=== PATIENT | female | born 1965 | race Caucasian/White ===

== ENCOUNTER 2016-08-22 04:01 | Inpatient (IN) | payer MEDICAID, OTHER ==
[~2016-08-22] VITALS: Ht 170.2 cm; Wt 72.0 kg
[~2016-08-22 04:01] MED LIST: IBUP-1542 PO; NAPR-260 PO
[2016-08-22] MEDS ORDERED: ACETAMINOPHEN 325 MG TAB PO STA (04:26)
[2016-08-22] MEDS ORDERED: SODIUM CHLORIDE 0.9% 1L BAG IV* STA (04:26)
[2016-08-22 05:12] LABS: ADD SCAN DIFF NO
[2016-08-22] MEDS ORDERED: ONDANSETRON 4 MG INJ IV STA (05:15)
[2016-08-22] MEDS ORDERED: morphine 4 MG/ML VIAL IV STA (05:15)
[2016-08-22 05:17] LABS: ABNORMAL IP MESSAGE 1; BASOPHILS % 0.3 % (0.0-2.0); HEMATOCRIT 38.2 % (37.0-47.0); LYMPHOCYTES # 0.8 10^3/ul (0.8-2.9); LYMPHOCYTES % 6.2 % (15.0-51.0); MEAN CORPUSCULAR HEMOGLOBIN 27.9 pg (29.0-33.0); MEAN PLATELET VOLUME 11.8 fl (7.4-10.4); MONOCYTE # 0.2 10^3/ul (0.3-0.9); MONOCYTES % 1.7 % (0.0-11.0); PLATELET COUNT 287 10^3/UL (140-415); RED BLOOD COUNT 4.66 10^6/ul (4.20-5.40); RED CELL DISTRIBUTION WIDTH 13.7 % (11.5-14.5); WHITE BLOOD COUNT 12.1 10^3/ul (4.8-10.8)
[2016-08-22 05:24] LABS: ALBUMIN 3.1 g/dl (3.3-4.9)
[2016-08-22 05:25] LABS: CHLORIDE 89 mmol/L (97-110); POTASSIUM 3.6 mmol/L (3.5-5.1); SODIUM 128 mmol/L (135-144)
[2016-08-22 05:27] LABS: ALBUMIN/GLOBULIN RATIO 0.83; ANION GAP 16 (8-16); ASPARTATE AMINO TRANSFERASE 50 IU/L (15-46); BILIRUBIN,INDIRECT 0.4 mg/dl (0-1.1); BILIRUBIN,TOTAL 0.4 mg/dl (0.2-1.3); BLOOD UREA NITROGEN 13 mg/dl (7-20); CARBON DIOXIDE 27 mmol/L (21-31); CREATININE 0.66 mg/dl (0.44-1.00); TOTAL PROTEIN 6.8 g/dl (6.1-8.1)
[2016-08-22 05:28] LABS: ALANINE AMINOTRANSFERASE 20 IU/L (13-69); ALKALINE PHOSPHATASE 87 IU/L (42-121); CALCIUM 9.6 mg/dl (8.4-10.2); GLUCOSE 143 mg/dl (70-220)
[2016-08-22 05:29] LABS: NEUTROPHILS % 91.1 % (39.0-77.0)
--- NOTE | 2016-08-22 05:34 | RADRPT ---
PROCEDURE: Chest. CLINICAL INDICATION: Chest pain. TECHNIQUE: Single frontal view of the chest was obtained. COMPARISON: None. FINDINGS: The cardiac silhouette is enlarged. The aortic arch is unremarkable. There is right basilar atelec tasis/consolidation and moderate pleural effusion. There is no pneumothorax. IMPRESSION: Right basilar atelectasis/consolidation and moderate pleural effusion. Mild cardiomegaly. .Crow Finn MD, MD Date Time Electronically viewed and signed by .Crow Finn MD, MD on 08/22/2016 05:34 .T/
[2016-08-22 05:39] LABS: INR 1.07; PROTIME 13.9 Sec (12.2-14.2); PT RATIO 1.1
[2016-08-22] MEDS ORDERED: CEFTRIAXONE 1 GM/50 ML (PMX) 50 ML IVPB STA (05:41)
[2016-08-22] MEDS ORDERED: AZITHROMYCIN 500MG/NS (PMX) 250 ML IV STA (05:41)
--- NOTE | 2016-08-22 05:45 | ERA ---
ER Documentation Chief Complaint Date/Time DATE: 08/22/16 TIME: 05:43 Chief Complaint coughx1 week, cp, fevers HPI This is a 50-year-old female cough for one week. Along with chest pain fevers for child cough is nonproductive. She started having fevers more severely tonight and came in to be evaluated. ROS All systems reviewed and are negative except as per history of present illness. Medications Home Meds Active Scripts Ibuprofen* (Motrin*) 600 Mg Tab, 600 MG PO Q8, #30 TAB Prov:JERONIMO STRONG MD 04/20/16 Naproxen* (Naprosyn*) 500 Mg Tablet, 500 MG PO BID Y for PAIN AND/OR INFLAMMATION, #30 TAB Prov:CHAYA GORDILLO PA-C 12/07/15 Allergies Allergies: Coded Allergies: No Known Drug Allergy (Verified Allergy, Mild, 12/07/15) PMhx/Soc History of Surgery: Yes (ANGIOPLASTY 2008, HYSTERCTOMY 1998, C SECTION 1989) Anesthesia Reaction: No Hx Neurological Disorder: No Hx Respiratory Disorders: No Hx Cardiac Disorders: Yes (HTN) Hx Psychiatric Problems: No Hx Miscellaneous Medical Probl: No Hx Alcohol Use: Yes Hx Substance Use: Yes Hx Tobacco Use: Yes Smoking Status: Light tobacco smoker Physical Exam Vitals Vital Signs Date Time Temp Pulse Resp B/P Pulse Ox O2 Delivery O2 Flow Rate FiO2 08/22/16 04:28 Nasal Cannula 3 08/22/16 04:07 101.2 118 24 142/107 91 Physical Exam Const: [] Head: Atraumatic Eyes: Normal Conjunctiva ENT: Normal External Ears, Nose and Mouth. Neck: Full range of motion..~ No meningismus. Resp: Clear to auscultation bilaterally Cardio: Regular rate and rhythm, no murmurs Abd: Soft, non tender, non distended. Normal bowel sounds Skin: No petechiae or rashes Back: No midline or flank tenderness Ext: No cyanosis, or edema Neur: Awake and alert Psych: Normal Mood and Affect Result Diagram: 08/22/1642408/22/16424 Results 24 hrs Laboratory Tests Test 08/22/16 04:25 Activated Partial Thromboplast Time Pending Alanine Aminotransferase (ALT/SGPT) 20IU/L Albumin 3.1g/dl Albumin/Globulin Ratio 0.83 Alkaline Phosphatase 87IU/L Anion Gap 16 Aspartate Amino Transf (AST/SGOT) 50IU/L Basophils # 0.010^3/ul Basophils % 0.3% Blood Urea Nitrogen 13mg/dl Calcium Level 9.6mg/dl Carbon Dioxide Level 27mmol/L Chloride Level 89mmol/L Creatinine 0.66mg/dl Direct Bilirubin 0.00mg/dl Eosinophils # 0.010^3/ul Eosinophils % 0.0% Globulin 3.70g/dl Glucose Level 143mg/dl Hematocrit 38.2% Hemoglobin 13.0g/dl INR International Normalized Ratio 1.07 Indirect Bilirubin 0.4mg/dl Lactic Acid Level 2.3mmol/L Lymphocytes # 0.810^3/ul Lymphocytes % 6.2% Mean Corpuscular Hemoglobin 27.9pg Mean Corpuscular Hemoglobin Concent 34.0g/dl Mean Corpuscular Volume 82.0fl Mean Platelet Volume 11.8fl Monocytes # 0.210^3/ul Monocytes % 1.7% Neutrophils # 11.010^3/ul Neutrophils % 91.1% Nucleated Red Blood Cells # 0.010^3/ul Nucleated Red Blood Cells % 0.0/100WBC Platelet Count 97218^3/UL Potassium Level 3.6mmol/L Prothrombin Time 13.9Sec Prothrombin Time Ratio 1.1 Red Blood Count 4.6610^6/ul Red Cell Distribution Width 13.7% Sodium Level 128mmol/L Total Bilirubin 0.4mg/dl Total Protein 6.8g/dl Troponin I Pending White Blood Count 12.110^3/ul Current Medications Medications (Trade) Dose Ordered Sig/Fam Route PRN Reason Start Time Stop Time Status Last Admin Dose Admin Sodium Chloride (NS) 2,150 ml BOLUS OVER 2 HOURS STAT IV* 08/22/16 04:26 08/22/16 04:28 DC 08/22/16 04:35 Acetaminophen (Tylenol Tab) 650 mg ONCE STAT PO 08/22/16 04:26 08/22/16 04:28 DC 08/22/16 04:35 Morphine Sulfate (morphine) 4 mg ONCE STAT IV 08/22/16 05:15 08/22/16 05:20 DC 08/22/16 05:26 Ondansetron HCl 4 mg 4 mg ONCE STAT IV 08/22/16 05:15 08/22/16 05:20 DC 08/22/16 05:26 Ceftriaxone Sodium 50 ml @ 100 mls/hr ONCE STAT IVPB 08/22/16 05:41 08/22/16 06:10 UNV Azithromycin (Zithromax 500mg/ NS (Pmx)) 250 ml @ 250 mls/hr ONCE STAT IV 08/22/16 05:41 08/22/16 06:40 UNV Procedures/MDM Patient's infectious symptoms have not stabilized and the patient is at risk of rapid decompensation. The patient will be admitted for careful hydration, antibiotic therapy, and infectious source control. Severe Sepsis Assessment: Infectious Source: Pneumonia End organ damage indicated by: [Lactate > 2.0 mmol/L Severe Sepsis Managment: Blood Cultures X 2 before broad spectrum antibiotics initiated within 3 hours of recognition. 30 ml/kg NS bolus Completed Initial Lactate: 2.3 Repeat Lactate pending Critical Care: Time: 45 minutes Treatments/Evaluations: Emergent fluid management, while maintaining close respiratory support. Immediate broad spectrum antibiotic therapy. Simultaneous assessment for possible sources in order to direct therapy. Consideration for invasive and chemical support to prevent respiratory or cardiac collapse. Septic Shock Assessment (1 hour post 30 ml/kg fluid bolus): Hypotension (SBP < 90 or 40 mmHg drop, MAP < 65): [No] Lactic acid > 4.0 [No] Perfusion Reassessment for Septic Shock: Temp 98.6, Pulse 99, RR 18, BP 117/76 Heart Exam: [Tachycardic] Lung Exam: [No Crackles] Capillary Refill: [Delayed] Peripheral Pulses: [Radially present] Skin: [Mottled, pale] Accepting Care Team: Current data and ongoing care discussed. Time: 545 Primary Provider: [employer] Consulting: [[employer]] Outstanding Data: none Departure Diagnosis: Primary Impression: Sepsis MEMO CHERRY Aug 22, 2016 05:45
[2016-08-22 05:51] LABS: TROPONIN-I < 0.012 ng/ml (0.00-0.12)
[2016-08-22 06:08] LABS: PARTIAL THROMBOPLASTIN TIME 37.6 Sec (25.0-35.0)
[2016-08-22 06:30] VITALS: TEMP 101.2
[2016-08-22 06:57] LABS: ADD UMIC YES; URINE BILIRUBIN (Dip) NEGATIVE (NEGATIVE); URINE BLOOD (Dip) TRACE (NEGATIVE); URINE COLOR YELLOW (YELLOW); URINE GLUCOSE (Dip) NEGATIVE (NEGATIVE); URINE KETONES (Dip) TRACE (NEGATIVE); URINE LEUKOCYTE ESTERASE (Dip) NEGATIVE (NEGATIVE); URINE NITRITE (Dip) POSITIVE (NEGATIVE); URINE TOTAL PROTEIN (Dip) 2+ (NEGATIVE); URINE UROBILINOGEN (Dip) 0.2 E.U./dL (0.1-1.0)
[2016-08-22 07:18] LABS: URINE RBCS 0-2 /HPF (0)
[2016-08-22 07:19] LABS: BACTERIA,URINE MANY; SQUAMOUS EPITHELIAL CELL,UR FEW
[2016-08-22 07:45] VITALS: BP 135/67; RESP 20
[2016-08-22] MEDS: morphine 2 MG INJ IV PRN (08:56)
[2016-08-22] MEDS ORDERED: ALBUTEROL/IPRATROPIUM (NEB) 3 ML AMP HHN PRN (09:30)
[2016-08-22] MEDS ORDERED: ONDANSETRON 4 MG INJ IV PRN (09:30)
[2016-08-22] MEDS ORDERED: AZITHROMYCIN 500MG/NS (PMX) 250 ML IVPB ONE (10:30)
[2016-08-22] MEDS: ALBUTEROL/IPRATROPIUM (NEB) 3 ML AMP HHN SCH ×2 (10:38→19:27)
[2016-08-22] MEDS: PANTOPRAZOLE (EC) 40 MG TAB PO SCH (11:04)
[2016-08-22] MEDS: DOCUSATE SODIUM 250 MG CAP PO SCH (11:04)
[2016-08-22] MEDS: CEFTRIAXONE 1 GM/50 ML (PMX) 50 ML IVPB SCH (11:05)
[2016-08-22] MEDS: SOD CHLORIDE 0.9% 1,000 ML IV SCH ×3 (11:06→21:51)
[2016-08-22 11:49] VITALS: Ht 170.2 cm; Wt 72.0 kg
--- NOTE | 2016-08-22 13:59 | RADRPT ---
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 Physician: SHANE LOUISE Quality: Adequate Procedures: Transthoracic echocardiogram with complete 2D, M-Mode, and doppler examination. Indications: Shortness of breath. 2D/M Mode Doppler Measurement Value Normal Ranges Measurement Value Normal Ranges LVIDd 2D 4.1 3.5 - 5.6 cm AV Peak Neo 1.4 m/sec LVIDs 2D 2.7 2.1 - 4.1 cm AV Peak PG 8.3 mmHg LVPWd 2D 1.4 0.6 - 1.1 cm LVOT Peak Neo 1.1 m/sec IVSd 2D 1.2 0.6 - 1.1 cm LVOT Peak PG 4.6 mmHg AoR Diam 2D 2.5 2.0 - 3.7 cm MV E Peak Noe 0.8 m/sec EDV 2D 74.3 cm3 MV A Peak Neo 1.0 m/sec ESV 2D 19.4 cm3 MV E/A 0.8 MV Decel Time 111 msec MV Decel [place] 7 MV E/A 0.8 Findings Left Ventricle: Normal left ventricular systolic function. Normal left ventricular cavity size. Mild concentric left ventricular hypertrophy. Ejection fraction is visually estimated at 60 %. Tissue Doppler/Mitral Doppler indices are consistent with impaired relaxation (Stage I diastolic dysfunction). Right Ventricle: Normal right ventricular size. Normal right ventricular systolic function. Left Atrium: The left atrium is normal in size. Right Atrium: The right atrium is normal in size. Mitral Valve: Mild mitral leaflet calcification. Mild mitral annular calcification. Trace mitral regurgitation. Aortic Valve: Trileaflet aortic valve. Trace aortic valve regurgitation. Tricuspid Valve: Tricuspid valve not well visualized. There is trace tricuspid regurgitation. Pulmonic Valve: Pulmonic valve not well visualized. There is trace pulmonic regurgitation. Pericardium: Normal pericardium with no significant pericardial effusion. Aorta: Normal aortic root. IVC: Normal size and normal respiratory collapse consistent with normal right atrial pressure. Conclusions 1.Normal left ventricular systolic function. Normal left ventricular cavity size. Mild concentric left ventricular hypertrophy. Ejection fraction is visually estimated at 60 %. Tissue Doppler/Mitral Doppler indices are consistent with impaired relaxation (Stage I diastolic dysfunction). 2.Trileaflet aortic valve. Trace aortic valve regurgitation. 3.Tricuspid valve not well visualized. There is trace tricuspid regurgitation. 4.Mild mitral leaflet calcification. Mild mitral annular calcification. Trace mitral regurgitation. Electronically Signed By: Nicolás Abbasi 22-Aug-2016 13:58:29 -0800 Patient Name: YARA BARNETT Study Date: 22-Aug-2016 [id number]
--- NOTE | 2016-08-22 16:10 | HP ---
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 HISTORY OF PRESENT ILLNESS: This is a 50-year-old homeless female with past medical history of sai nydia dependency, alcoholism, who presents to [facility] secondary to having genera lized weakness, cough, congestion, which has been off and on for the past 3 weeks, with worsening of her condition for the past 2 days. Upon arrival to emergency room, WBC was found to be 12.1. Ches t x-ray was obtained, which showed right basilar atelectasis consolidation, moderate pleural effusio n, marked cardiomegaly. Patient was treated with azithromycin and Rocephin in the course of the galina rgency room and has been admitted to med/surg for further evaluation and treatment. The patient sta anderson that she has been having chest discomfort, which was explained as pleuritic pain secondary to ex cessive cough. She denies having any chest pain, abdominal pain, nausea, vomiting, diarrhea. No he adache, dizziness, lightheadedness. No change in visual acuity, diplopia, photophobia. No sick con tact, no recent travel history. No hematemesis, hematochezia, change in the color of stool or cough ing up blood. PAST MEDICAL AND SURGICAL HISTORY: As above per HPI. MEDICATIONS: No active medication. ALLERGIES: NO KNOWN DRUG ALLERGIES. FAMILY HISTORY: Noncontributory. SOCIAL HISTORY: Positive for alcohol. She drinks 6 pack a day and smokes half a pack of cigarettes per day. She denies using any illicit drugs. REVIEW OF SYSTEMS: As above per HPI. Otherwise, 12 review of systems was found to be negative. PHYSICAL EXAMINATION: VITAL SIGNS: Temperature 101.2, pulse 118, respiration 20, blood pressure 135/67, oxygen 93% on 2 l iters via nasal cannula. GENERAL APPEARANCE: Patient is lying in bed comfortably without any distress. She is awake, alert, oriented. Is able to answer my questions properly. Not using any accessory muscles for breathing. EYES AND ENT: Conjunctivae and lids are normal. Pupils are normal. Extraocular normal. Hearing g rossly normal. Lips, teeth, and gums are normal. Oral mucosa mildly dry. NECK: Supple. Trachea is midline. No lymphadenopathy. RESPIRATORY: Effort is normal. Decreased breath sounds in the right lower lung field. No crackles , no rales, no wheezing. CARDIOVASCULAR: Normal S1, S2. Regular rhythm and rate. No murmur, no bruits, no edema. Peripher al pulses, radial pulses palpable. Cap refill is normal. CHEST: Normal expansion of thorax during inspiration. GASTROINTESTINAL: Abdomen is soft, nontender, not distended. Bowel sounds present. No guarding, n o rebound. GENITOURINARY: Deferred. MUSCULOSKELETAL: Upper and lower extremities within normal limits. Full range of motion. Strength 5/5 in both upper and lower extremities. NEUROLOGIC: Cranial nerves II through XII are grossly intact. PSYCHIATRIC: Normal judgment and insight. Alert and oriented x3. Mood and affect is normal. LABORATORY WORK AND IMAGING: WBC 12.1, hemoglobin 13, hematocrit 38.2, platelets 287. Sodium 138, potassium 3.6, chloride 89, bicarbonate 27, BUN 16, creatinine 0.66, glucose 143, lactic acid 2.31, 1.4. LFTs: AST 50. Otherwise, everything else is negative. Albumin 3.1. ASSESSMENT AND PLAN: 1. Right-sided pleural effusion infection/pneumonia. Patient has been started on Rocephin and azit hromycin. Also on breathing treatment. 2. History of alcoholism. The patient has been placed on thiamine, folic acid, multivitamin. Also, will place the patient on p.r.n. Ativan. 3. Nicotine dependency. Smoking cessation has been advised. 4. For deep venous thrombosis prophylaxis, on Lovenox. 5. Will continue to monitor patient closely. Further recommendations, management, and treatment as per clinical course. Total amount of time spent for evaluation of patient and admission workup: 40 minutes. Dictated By: HEVER INFANTE/NTS Conf#: [id number] DID#: [id number]
[2016-08-22] MEDS: HYDROCODONE/APAP (5/325) TAB PO PRN (16:11)
[2016-08-22] MEDS: LORAZEPAM 0.5 MG TAB PO PRN (21:51)
[2016-08-22 23:00] VITALS: BP 135/68; PULSE 61; RESP 21
[2016-08-23] MEDS: PANTOPRAZOLE (EC) 40 MG TAB PO SCH (05:47)
[2016-08-23 05:56] LABS: ADD SCAN DIFF NO
[2016-08-23] MEDS: HYDROCODONE/APAP (5/325) TAB PO PRN ×2 (05:56→13:36)
[2016-08-23] MEDS: SOD CHLORIDE 0.9% 1,000 ML IV SCH ×2 (05:58→17:31)
[2016-08-23 06:09] LABS: ABNORMAL IP MESSAGE 1; BASOPHILS % 0.2 % (0.0-2.0); EOSINOPHILS % 0.1 % (0.0-7.0); HEMATOCRIT 30.2 % (37.0-47.0); HEMOGLOBIN 10.3 g/dl (12.0-16.0); LYMPHOCYTES # 1.2 10^3/ul (0.8-2.9); LYMPHOCYTES % 8.8 % (15.0-51.0); MEAN CORPUSCULAR HEMOGLOBIN 28.3 pg (29.0-33.0); MEAN CORPUSCULAR HGB CONC 34.1 g/dl (32.0-37.0); MEAN PLATELET VOLUME 11.9 fl (7.4-10.4); MONOCYTE # 0.3 10^3/ul (0.3-0.9); NEUTROPHIL # 11.7 10^3/ul (1.6-7.5); NEUTROPHILS % 87.5 % (39.0-77.0); PLATELET COUNT 319 10^3/UL (140-415); RED BLOOD COUNT 3.64 10^6/ul (4.20-5.40); RED CELL DISTRIBUTION WIDTH 13.9 % (11.5-14.5); WHITE BLOOD COUNT 13.4 10^3/ul (4.8-10.8)
[2016-08-23 06:34] LABS: CHLORIDE 96 mmol/L (97-110); POTASSIUM 3.7 mmol/L (3.5-5.1); SODIUM 129 mmol/L (135-144)
[2016-08-23 06:37] LABS: ANION GAP 13 (8-16); BLOOD UREA NITROGEN 12 mg/dl (7-20); CARBON DIOXIDE 24 mmol/L (21-31); CHOLESTEROL < 50 mg/dl (100-200); CREATININE 0.55 mg/dl (0.44-1.00); GLUCOSE 90 mg/dl (70-220); TRIGLYCERIDES 45 mg/dl (0-149)
[2016-08-23 06:38] LABS: CALCIUM 8.1 mg/dl (8.4-10.2); HDL CHOLESTEROL 15 mg/dl (37-92); MAGNESIUM 1.7 mg/dl (1.7-2.5)
[2016-08-23 07:46] VITALS: BP 135/81; RESP 19
[2016-08-23] MEDS: ALBUTEROL/IPRATROPIUM (NEB) 3 ML AMP HHN SCH ×2 (08:28→13:43)
[2016-08-23] MEDS: THIAMINE 100 MG TAB PO SCH (09:34)
[2016-08-23] MEDS: MULTIVITAMINS THERAPEUTIC TAB PO SCH (09:34)
[2016-08-23] MEDS: FOLIC ACID 1 MG TAB PO SCH (09:34)
[2016-08-23] MEDS: DOCUSATE SODIUM 250 MG CAP PO SCH (09:34)
[2016-08-23] MEDS: CEFTRIAXONE 1 GM/50 ML (PMX) 50 ML IVPB SCH (09:35)
[2016-08-23] MEDS: ENOXAPARIN 40 MG/0.4 ML SYG SC SCH (09:41)
--- NOTE | 2016-08-23 15:44 | PN ---
Date/Time of Note Date/Time of Note DATE: 08/23/16 TIME: 15:30 Assessment/Plan VTE Prophylaxis VTE Prophylaxis Intervention: SCD's Lines/Catheters IV [facility]ter Type (from [facility]): Peripheral IV Urinary Cath still in place: No Assessment/Plan Chief Complaint/Hosp Course ASSESSMENT AND PLAN: 1. Right-sided pleural effusion infection/pneumonia. Transition Rocephin to Zosyn. Continue breathing treatment. 2. History of alcoholism. The patient has been placed on thiamine, folic acid , multivitamin. Also, will place the patient on p.r.n. Ativan. 3. Bacteremia with positive Streptococcus pneumonia and blood culture positive for Gram positive cocci in pairs and chains, continue Zosyn 4. Nicotine dependency. Smoking cessation has been advised. 5. For deep venous thrombosis prophylaxis, on Lovenox. 6. Will continue to monitor patient closely. Further recommendations, management, and treatment as per clinical course Problems: Subjective 24 Hr Interval Summary Free Text/Dictation Patient continues to complain of having cough and congestion Denies any chest pain or shortness of breath Tolerating oral intake Exam/Review of Systems Vital Signs Vitals Vital Signs Date Time Temp Pulse Resp B/P Pulse Ox O2 Delivery O2 Flow Rate FiO2 08/23/16 13:46 92 20 96 21 08/23/16 08:00 Nasal Cannula 2.0 08/23/16 07:46 98.2 135/81 Intake and Output 08/22/16 08/22/16 08/23/16 15:00 23:00 07:00 Intake Total 900 ml 1000 ml 1480 ml Balance 900 ml 1000 ml 1480 ml Exam General: The patient is well-developed, Not in acute distress. HEENT: Atraumatic, normocephalic. The pupils are equal and round . Neck: Supple with full range of motion. Chest: Normal expansion of the thorax during inspiration Lungs: Decreased breath sound right lower lung field, no crackles or rales Heart: Normal S1-S2, Regular rhythm and rate. Abdomen: Soft , nontender, nondistended , bowel sounds are present. Extremities: Normal to inspection, no edema no cyanosis Neurologic: Normal mental status,The patient is awake, alert and oriented . Results Result Diagram: 08/23/16 0522 08/23/16 0522 Results 24 hrs Laboratory Tests Test 08/23/16 05:22 Anion Gap 13 Basophils # 0.0 Basophils % 0.2 Blood Urea Nitrogen 12 Calcium Level 8.1 L Carbon Dioxide Level 24 Chloride Level 96 L Cholesterol Level < 50 L Cholesterol/HDL Ratio Creatinine 0.55 Eosinophils # 0.0 Eosinophils % 0.1 Glucose Level 90 # HDL Cholesterol 15 L Hematocrit 30.2 #L Hemoglobin 10.3 #L LDL Cholesterol, Calculated Lymphocytes # 1.2 Lymphocytes % 8.8 L Magnesium Level 1.7 Mean Corpuscular Hemoglobin 28.3 L Mean Corpuscular Hemoglobin Concent 34.1 Mean Corpuscular Volume 83.0 Mean Platelet Volume 11.9 H Monocytes # 0.3 Monocytes % 2.0 Neutrophils # 11.7 H Neutrophils % 87.5 H Nucleated Red Blood Cells # 0.0 Nucleated Red Blood Cells % 0.0 Platelet Count 319 Potassium Level 3.7 Red Blood Count 3.64 #L Red Cell Distribution Width 13.9 Sodium Level 129 L Triglycerides Level 45 White Blood Count 13.4 H Medications Medications Current Medications Morphine Sulfate 2 mg 2 mg Q4H PRN IV PAIN LEVEL 7-10 Last administered on 08:56; Admin Dose 2 MG; Start 08/22/16 at 09:00 Ceftriaxone Sodium (Rocephin) 50 ml @ 100 mls/hr Q24H IVPB Last administered on 08/23/16 09:35; Admin Dose 100 MLS/HR; Start 08/22/16 at 09:30 Ondansetron HCl (Zofran Inj) 4 mg Q6H PRN IV NAUSEA AND/OR VOMITING; Start 08/22 at 09:30 Acetaminophen/ Hydrocodone Bitart 1 tab 1 tab Q6H PRN PO pain Last administered on 08/23/16 13:36; Admin Dose 1 TAB; Start 08/22/16 at 09:30 Sodium Chloride (NS) 1,000 ml @ 125 mls/hr Q8H IV Last administered on 05:58; Admin Dose 125 MLS/HR; Start 08/22/16 at 09:30 Pantoprazole (Protonix Tab) 40 mg DAILY@06 PO Last administered on 08/23/16 05: 47; Admin Dose 40 MG; Start 08/22/16 at 09:30 Docusate Sodium (Colace) 250 mg DAILY PO Last administered on 08/23/16 09:34; Admin Dose 250 MG; Start 08/22/16 at 09:30 Enoxaparin Sodium (Lovenox) 40 mg DAILY SC Last administered on 08/23/16 09:41 ; Admin Dose 40 MG; Start 08/23/16 at 09:00 Folic Acid (Folic Acid) 1 mg DAILY PO Last administered on 08/23/16 09:34; Admin Dose 1 MG; Start 08/23/16 at 09:00 Thiamine HCl (Vitamin B1) 100 mg DAILY PO Last administered on 08/23/16 09:34; Admin Dose 100 MG; Start 08/23/16 at 09:00 Multivitamins Therapeutic (Theragran) 1 tab DAILY PO Last administered on 09:34; Admin Dose 1 TAB; Start 08/23/16 at 09:00 Lorazepam (Ativan) 0.5 mg Q6H PRN PO ANXIETY Last administered on 08/22/16 21: 51; Admin Dose 0.5 MG; Start 08/22/16 at 15:30 HEVER GARCIA MD Aug 23, 2016 15:40
[2016-08-23] MEDS: LORAZEPAM 0.5 MG TAB PO PRN (17:42)
[2016-08-23 20:35] VITALS: BP 142/75; RESP 20
[2016-08-23] MEDS ORDERED: LORAZEPAM 1 MG TAB PO PRN (21:00)
[2016-08-23] MEDS ORDERED: LORAZEPAM 1 MG TAB PO ONE (21:00)
[2016-08-23] MEDS: PIPER-TAZO 3.375 GM IV (PMX) 100 ML IVPB SCH (21:08)
[2016-08-24] MEDS: SOD CHLORIDE 0.9% 1,000 ML IV SCH ×2 (01:30→09:07)
[2016-08-24] MEDS: PANTOPRAZOLE (EC) 40 MG TAB PO SCH (05:15)
[2016-08-24] MEDS: PIPER-TAZO 3.375 GM IV (PMX) 100 ML IVPB SCH (05:15)
[2016-08-24] MEDS: HYDROCODONE/APAP (5/325) TAB PO PRN (05:20)
[2016-08-24 05:58] LABS: ADD SCAN DIFF NO
[2016-08-24 06:05] LABS: BASOPHILS % 0.4 % (0.0-2.0); EOSINOPHILS # 0.1 10^3/ul (0.0-0.5); EOSINOPHILS % 0.5 % (0.0-7.0); HEMATOCRIT 34.1 % (37.0-47.0); HEMOGLOBIN 11.6 g/dl (12.0-16.0); LYMPHOCYTES # 1.3 10^3/ul (0.8-2.9); LYMPHOCYTES % 11.8 % (15.0-51.0); MEAN CORPUSCULAR HEMOGLOBIN 28.4 pg (29.0-33.0); MEAN CORPUSCULAR VOLUME 83.4 fl (82.0-101.0); MEAN PLATELET VOLUME 11.9 fl (7.4-10.4); MONOCYTE # 0.2 10^3/ul (0.3-0.9); MONOCYTES % 1.9 % (0.0-11.0); NEUTROPHIL # 9.2 10^3/ul (1.6-7.5); NEUTROPHILS % 83.9 % (39.0-77.0); PLATELET COUNT 457 10^3/UL (140-415); RED BLOOD COUNT 4.09 10^6/ul (4.20-5.40); RED CELL DISTRIBUTION WIDTH 14.3 % (11.5-14.5)
[2016-08-24 06:18] LABS: POTASSIUM 3.8 mmol/L (3.5-5.1)
[2016-08-24 06:20] LABS: CREATININE 0.52 mg/dl (0.44-1.00)
[2016-08-24 06:21] LABS: CALCIUM 7.9 mg/dl (8.4-10.2)
[2016-08-24 07:49] VITALS: BP 157/92; RESP 18
[2016-08-24] MEDS: ENOXAPARIN 40 MG/0.4 ML SYG SC SCH (09:00)
[2016-08-24] MEDS: MULTIVITAMINS THERAPEUTIC TAB PO SCH (09:05)
[2016-08-24] MEDS: DOCUSATE SODIUM 250 MG CAP PO SCH (09:05)
[2016-08-24] MEDS: THIAMINE 100 MG TAB PO SCH (09:05)
[2016-08-24] MEDS: FOLIC ACID 1 MG TAB PO SCH (09:05)
[2016-08-24] MEDS: morphine 2 MG INJ IV PRN (09:07)
[2016-08-24] MEDS ORDERED: GUAIFENESIN/CODEINE 5ML CUP PO PRN (10:30)
--- NOTE | 2016-08-24 11:16 | PN ---
Date/Time of Note Date/Time of Note DATE: 08/24/16 TIME: 11:14 Assessment/Plan VTE Prophylaxis VTE Prophylaxis Intervention: SCD's Lines/Catheters [facility] Peripheral IV Urinary Cath still in place: No Assessment/Plan Chief Complaint/Hosp Course ASSESSMENT AND PLAN: 1. Right-sided pleural effusion infection/pneumonia. Continue Zosyn. Continue breathing treatment. [employer] has been consulted for further recommendations 2. History of alcoholism. The patient has been placed on thiamine, folic acid , multivitamin. Also, will place the patient on p.r.n. Ativan. 3. Bacteremia with positive Streptococcus pneumonia and blood culture positive for Gram positive cocci in pairs and chains, continue Zosyn 4. Nicotine dependency. Smoking cessation has been advised. 5. For deep venous thrombosis prophylaxis, on Lovenox. 6. Will continue to monitor patient closely. Further recommendations, management, and treatment as per clinical course Problems: Subjective 24 Hr Interval Summary Free Text/Dictation Patient continues to complain of having cough and congestion The cough is complaining with shortness of breath Denies any abdominal pain or chest pain Exam/Review of Systems Vital Signs Vitals Vital Signs Date Time Temp Pulse Resp B/P Pulse Ox O2 Delivery O2 Flow Rate FiO2 08/24/16 07:49 97.7 95 18 157/92 93 08/23/16 13:46 21 08/23/16 08:00 Nasal Cannula 2.0 Intake and Output 08/23/16 08/23/16 08/24/16 15:00 23:00 07:00 Intake Total 2370 ml 1240 ml Balance 2370 ml 1240 ml Exam General: The patient is well-developed, Not in acute distress. HEENT: Atraumatic, normocephalic. The pupils are equal and round . Neck: Supple with full range of motion. Chest: Normal expansion of the thorax during inspiration Lungs: Decreased breath sounds right lower lung field Heart: Normal S1-S2, Regular rhythm and rate. Abdomen: Soft , nontender, nondistended , bowel sounds are present. Extremities: Normal to inspection, no edema no cyanosis Neurologic: Normal mental status,The patient is awake, alert and oriented . Results Result Diagram: 08/24/16 0430 08/24/16 0430 Results 24 hrs Laboratory Tests Test 08/24/16 04:30 Anion Gap 14 Basophils # 0.0 Basophils % 0.4 Blood Urea Nitrogen 13 Calcium Level 7.9 L Carbon Dioxide Level 27 Chloride Level 95 L Creatinine 0.52 Eosinophils # 0.1 Eosinophils % 0.5 Glucose Level 73 Hematocrit 34.1 L Hemoglobin 11.6 L Lymphocytes # 1.3 Lymphocytes % 11.8 L Mean Corpuscular Hemoglobin 28.4 L Mean Corpuscular Hemoglobin Concent 34.0 Mean Corpuscular Volume 83.4 Mean Platelet Volume 11.9 H Monocytes # 0.2 L Monocytes % 1.9 Neutrophils # 9.2 H Neutrophils % 83.9 H Nucleated Red Blood Cells # 0.0 Nucleated Red Blood Cells % 0.0 Platelet Count 457 #H Potassium Level 3.8 Red Blood Count 4.09 L Red Cell Distribution Width 14.3 Sodium Level 132 L White Blood Count 11.0 H Medications Medications Current Medications Morphine Sulfate (morphine) 2 mg Q4H PRN IV PAIN LEVEL 7-10 Last administered on 08/24/16 09:07; Admin Dose 2 MG; Start 08/22/16 at 09:00 Ondansetron HCl (Zofran Inj) 4 mg Q6H PRN IV NAUSEA AND/OR VOMITING; Start 08/22 at 09:30 Acetaminophen/ Hydrocodone Bitart 1 tab 1 tab Q6H PRN PO pain Last administered on 08/24/16 05:20; Admin Dose 1 TAB; Start 08/22/16 at 09:30 Sodium Chloride (NS) 1,000 ml @ 125 mls/hr Q8H IV Last administered on 17:31; Admin Dose 125 MLS/HR; Start 08/22/16 at 09:30 Pantoprazole (Protonix Tab) 40 mg DAILY@06 PO Last administered on 08/24/16 05: 15; Admin Dose 40 MG; Start 08/22/16 at 09:30 Docusate Sodium (Colace) 250 mg DAILY PO Last administered on 08/24/16 09:05; Admin Dose 250 MG; Start 08/22/16 at 09:30 Enoxaparin Sodium (Lovenox) 40 mg DAILY SC Last administered on 08/23/16 09:41 ; Admin Dose 40 MG; Start 08/23/16 at 09:00 Folic Acid (Folic Acid) 1 mg DAILY PO Last administered on 3/8/17at 09:05; Admin Dose 1 MG; Start 08/23/16 at 09:00 Thiamine HCl (Vitamin B1) 100 mg DAILY PO Last administered on 08/24/16 09:05; Admin Dose 100 MG; Start 08/23/16 at 09:00 Multivitamins Therapeutic 1 tab 1 tab DAILY PO Last administered on 08/24/16 09 :05; Admin Dose 1 TAB; Start 08/23/16 at 09:00 Piperacillin Sod/ Tazobactam Sod (Zosyn 3.375gm/ 100 ml (Pmx)) 100 ml @ 200 mls /hr Q8 IVPB Last administered on 08/24/16 05:15; Admin Dose 200 MLS/HR; Start 08/23/16 at 22:00 Lorazepam (Ativan) 1 mg Q4H PRN PO ANXIETY; Start 08/23/16 at 21:00 Guaifenesin/ Codeine Phosphate (Robitussin Ac Liquid Cup) 5 ml Q6H PRN PO COUGH ; Start 08/24/16 at 10:30 HEVER GARCIA MD Aug 24, 2016 11:16
--- NOTE | 2016-08-24 15:16 | CONS ---
DATE OF ADMISSION: 08/22/2016 DATE OF CONSULTATION: 08/24/2016 HISTORY OF PRESENT ILLNESS: This is a 50-year-old homeless lady with history of alcohol and tobacco use who came in with increasing shortness of breath, orthopnea and PND. She was found to have a ri ght effusion with dense infiltrate. She has had a nonproductive cough, subjective fever and right-s ided pleuritic chest pain and states she has no history of hemoptysis or hematemesis. Denies any we ight loss. PAST MEDICAL HISTORY: As above. MEDICATIONS: Per chart. ALLERGIES: NONE KNOWN. SOCIAL HISTORY: She smokes half a pack per day, has done so for 20+ years. Drinks a 6 pack per day or so. Denies any history of drug use. FAMILY HISTORY: Noncontributory. SYSTEMS REVIEW: A 12-point review of systems was negative other than that mentioned above. PHYSICAL EXAMINATION: GENERAL: Elderly-appearing lady, appears comfortable at rest, no acute distress. VITAL SIGNS: Currently afebrile, pulse is 100, blood pressure 157/60, O2 saturation 96% on 2 liters . NECK: Supple. No JVD or lymphadenopathy. CARDIAC: S1, S2, no added sounds or murmurs. CHEST: Diminished air entry bilaterally. ABDOMEN: Soft, nontender. No guarding or rebound. EXTREMITIES: No cyanosis, clubbing, edema. NEUROLOGIC: Generalized weakness. LABORATORY DATA: White count 11, hemoglobin 11.6, platelets of 457. Chemistry: Sodium 132. IMPRESSION AND PLAN: 1. Right lower lobe infiltrate versus effusion. 2. History Positive tobacco use and history of alcohol abuse. 3. Differential does include community-acquired pneumonia versus aspiration pneumonia and loculated pleural effusion versus empyema. 4. The patient require a CT of chest to evaluate lung parenchyma prior to possible thoracentesis. If there is evidence of a loculated effusion, she may benefit from video-assisted thorascopic surger y. Dictated By: KAROLINA BLOCK/MARIBETH Conf#: [id number] DID#: [id number]
--- NOTE | 2016-08-24 15:33 | DS ---
Date/Time of Note Date/Time of Note DATE: 08/24/16 TIME: 15:30 Discharge Summary Admission/Discharge Info Admit Date/Time Aug 22, 2016 at 05:43 Discharge Date/Time Aug 24, 2016 at 13:30 Final Diagnosis Patient signed out AMA Diagnoses 1. Right-sided pleural effusion infection/pneumonia. Status post Zosyn and breathing treatment. [facility] has been consulted 2. History of alcoholism. The patient was placed on thiamine, folic acid, multivitamin. 3. Bacteremia with positive Streptococcus pneumonia and blood culture positive for Gram positive cocci in pairs and chains, status post Zosyn 4. Nicotine dependency. Smoking cessation has been advised. Patient Condition: Guarded Hospital Course This is a 50-year-old homeless female with past medical history of nicotine dependency, alcoholism, who presents to [facility] [place] secondary to having generalized weakness, cough, congestion, which has been off and on for the past 3 weeks, with worsening of her condition for the past 2 days. Upon arrival to emergency room, WBC was found to be 12.1. Chest x-ray was obtained, which showed right basilar atelectasis consolidation, moderate pleural effusion, marked cardiomegaly. Patient was treated with azithromycin and Rocephin in the course of the emergency room and has been admitted to med/ surg for further evaluation and treatment. Patient IV antibiotics was transitioned to Zosyn secondary to positive blood culture. She was also seen and evaluated by nurse ortho and right-sided thoracocentesis was ordered although prior to this procedure patient decided to sign out AMA Patient understood the risk of leaving AGAINST MEDICAL ADVICE which may cause to worsening of her condition, infection, worsening her breathing status, worsening of her pneumonia and pleural effusion, and possible Home Meds Discontinued Scripts Ibuprofen* (Motrin*) 600 Mg Tab, 600 MG PO Q8, #30 TAB Prov:JERONIMO STRONG MD 04/20/16 Naproxen* (Naprosyn*) 500 Mg Tablet, 500 MG PO BID Y for PAIN AND/OR INFLAMMATION, #30 TAB Prov:CHAYA GORDILLO PA-C 12/07/15 Pending Labs Laboratory Tests Test 08/24/16 04:30 Anion Gap 14 (8-16) Basophils # 0.010^3/ul (0.0-0.1) Basophils % 0.4% (0.0-2.0) Blood Urea Nitrogen 13mg/dl (7-20) Calcium Level 7.9mg/dl (8.4-10.2) Carbon Dioxide Level 27mmol/L (21-31) Chloride Level 95mmol/L (97-110) Creatinine 0.52mg/dl (0.44-1.00) Eosinophils # 0.110^3/ul (0.0-0.5) Eosinophils % 0.5% (0.0-7.0) Glucose Level 73mg/dl (70-220) Hematocrit 34.1% (37.0-47.0) Hemoglobin 11.6g/dl (12.0-16.0) Lymphocytes # 1.310^3/ul (0.8-2.9) Lymphocytes % 11.8% (15.0-51.0) Mean Corpuscular Hemoglobin 28.4pg (29.0-33.0) Mean Corpuscular Hemoglobin Concent 34.0g/dl (32.0-37.0) Mean Corpuscular Volume 83.4fl (82.0-101.0) Mean Platelet Volume 11.9fl (7.4-10.4) Monocytes # 0.210^3/ul (0.3-0.9) Monocytes % 1.9% (0.0-11.0) Neutrophils # 9.210^3/ul (1.6-7.5) Neutrophils % 83.9% (39.0-77.0) Nucleated Red Blood Cells # 0.010^3/ul (0.0-0.0) Nucleated Red Blood Cells % 0.0/100WBC (0.0-0.0) Platelet Count 97528^3/UL (140-415) Potassium Level 3.8mmol/L (3.5-5.1) Red Blood Count 4.0910^6/ul (4.20-5.40) Red Cell Distribution Width 14.3% (11.5-14.5) Sodium Level 132mmol/L (135-144) White Blood Count 11.010^3/ul (4.8-10.8) HEVER GARCIA MD Aug 24, 2016 15:33
== END 2016-08-24 13:30 | disposition left against medical advice (07) | DRG 194 ==
LOC: E/R 04:01 → PP2 05:43
PROVIDERS: ADMIT Hospitalist; ATTEND Hospitalist
DX: J18.9 Pneumonia, unspecified organism (principal); J91.8 Pleural effusion in other conditions classified elsewhere; R78.81 Bacteremia; I11.9 Hypertensive heart disease without heart failure; F10.20 Alcohol dependence, uncomplicated; F17.210 Nicotine dependence, cigarettes, uncomplicated; Z59.0 Homelessness; B95.3 Streptococcus pneumoniae as the cause of diseases classified elsewhere
CPT/HCPCS: 36415; 71010; 80048; 80053; 80061; 81001; 81003; 83605; 83735; 84484; 85025; 85610; 85730; 87040; 87070; 87086; 93005; 93306; 94640; 94664; 96374; 96375; J0456; J0696; J1650; J2270; J2405; J2543; J7030